=== PATIENT | female | born 1995 | race Caucasian/White ===

== ENCOUNTER 2018-09-12 21:48 | Emergency (ER) | payer OTHER ==
--- NOTE | 2018-09-12 21:58 | ED Physician Documentation ---
PD HPI FEMALE - Stated complaint Stated Complaint: FEM /6WKS PREG - History obtained from History obtained from: Patient - History of Present Illness Timing - onset: Today (She had brief cramping and slight spotting after urination today. She did not notice any blood in the toilet with the urine but when she wiped there was some blood tingeing on the toilet paper. She is 6 weeks with a positive test at home. She is concerned about this.) Timing - details: Abrupt onset. No: Still present Associated symptoms: Pelvic pain (some cramping), Vaginal bleeding (just spotting briefly). No: Fever, Abdominal pain, Back pain, Vaginal discharge, Dysuria, Urinary frequency Contributing factors: (5-6 weeks by dates) [employer] History: G (1), P (0) Similar symptoms before: Has not had sx before Recently seen: Not recently seen Review of Systems Constitutional: denies: Fever Nose: denies: Rhinorrhea / runny nose, Congestion Throat: denies: Sore throat Respiratory: denies: Cough GI: denies: Nausea, Vomiting, Diarrhea : denies: Dysuria, Frequency, Discharge Neurologic: denies: Generalized weakness, Near syncope PD PAST MEDICAL HISTORY - Past Medical History Cardiovascular: None Respiratory: None Neuro: None Endocrine/Autoimmune: None - Allergies Allergies/Adverse Reactions: Allergies Allergy/AdvReac Type Severity Reaction Status Date / Time Penicillins Allergy Unknown Verified 09/12/18 22:01 PD ED PE NORMAL - Vitals Vital signs reviewed: Yes - General General: Alert and oriented X 3, No acute distress, Well developed/nourished - Cardiac Cardiac: RRR, No murmur - Respiratory Respiratory: Clear bilaterally - Abdomen Abdomen: Normal bowel sounds, Soft, Non tender, Non distended, No organomegaly, Other (bedside U/S did not visualized the uterus well. Will get formal U/S. ) - Female Female : Deferred - Back Back: No CVA TTP - Derm Derm: Normal color, Warm and dry Results - Vitals Vitals: Vital Signs - 24 hr 09/12/18 09/13/18 21:59 00:21 Temperature 36.8 C 37.2 C Heart Rate 102 H 71 Respiratory 17 16 Rate Blood Pressure 145/84 H 125/76 O2 Saturation 98 100 Oxygen O2 Source Room air - Labs Labs: Laboratory Tests 09/12/18 09/12/18 09/12/18 22:05 22:33 22:33 HCG, Quant 3755.00 Urine Color YELLOW Urine Clarity CLEAR Urine pH 5.5 Ur Specific [place] <=1.005 Urine Protein NEGATIVE Urine Glucose (UA) NEGATIVE Urine Ketones NEGATIVE Urine Occult Blood SMALL H Urine Nitrite NEGATIVE Urine Bilirubin NEGATIVE Urine Urobilinogen 0.2 (NORMAL) Ur Leukocyte Esterase TRACE H Urine RBC 0-5 Urine WBC 0-3 Ur Squamous Epith Cells MOD Squamous H Urine Bacteria Rare Ur Microscopic Review INDICATED Urine Culture Comments NOT INDICATED Blood Type O NEGATIVE - Rads (name of study) OB U/S Radiology: Prelim report reviewed (Intrauterine visualized with gestational age about consistent with dates at 5-week 2 days.), See rad report Departure - Departure Disposition: 01 Home, Self Care Clinical Impression: Hemorrhage, , early Condition: Stable Record reviewed to determine appropriate education?: Yes Instructions: Bleeding Early Preg Comments: Your ultrasound shows an intrauterine appropriate for dates. As expected it is too early to really see a heartbeat. Your quantitative hCG is 3755. Follow-up with your primary care in 2 or 3 days to have the blood tests repeated again to ensure its rising appropriately. It should about double in that timeframe. Some spotting in early pregnancies is relatively common and typically benign. Return if fevers, consistent pain, worse or continued bleeding or other concerns. Discharge Date/Time: 09/13/18 00:26
[2018-09-12 22:11] LABS: BILIRUBIN,URINE NEGATIVE (NEGATIVE); GLUCOSE, URINE (UA) NEGATIVE (NEGATIVE); KETONES,URINE (UA) NEGATIVE (NEGATIVE); LEUKOCYTE ESTERASE, URINE TRACE (NEGATIVE); NITRITE,URINE NEGATIVE (NEGATIVE); OCCULT BLOOD,URINE SMALL (NEGATIVE); PH,URINE 5.5 PH (5.0-7.5); PROTEIN,URINE NEGATIVE (NEGATIVE); UROBILINOGEN,URINE 0.2 (NORMAL) E.U./dL (NORMAL)
[2018-09-12 22:12] LABS: CLARITY,URINE CLEAR (CLEAR)
[2018-09-12 22:26] LABS: BACTERIA,URINE Rare /HPF (None Seen); RBC,URINE 0-5 /HPF (0-5); SQUAMOUS EPITHELIAL CELL,UR MOD Squamous (<= Few)
[2018-09-13 00:22] VITALS: BP 125/76
--- NOTE | 2018-09-13 00:46 | Ultrasound Report ---
Reason: early preg; vag spotting Procedure Date: 09/12/2018 Accession Number: [id number] / [id number] Procedure: US - OB First Trimester CPT Code: FULL RESULT: EXAM: FIRST TRIMESTER OBSTETRIC ULTRASOUND (Less than 11 weeks) EXAM DATE: 09/12/2018 11:50 PM. CLINICAL HISTORY: Early . Vaginal spotting. LMP: 08/04/2018. COMPARISONS: None. TECHNIQUE: Transabdominal and transvaginal ultrasound examination with static image documentation. CLINICAL DATES: EGA 5 weeks 4 days with SHANIKA 05/11/2019 based on LMP. ASSESSMENT: Gestational Sac: Single intrauterine. Mean gestational sac diameter: 4.6 mm = 5 weeks 2 days. Embryo: Not seen. Cardiac activity: Not seen. Yolk sac: 1.9 mm. Amniotic fluid: Not accurately assessed at this gestational age. Early placenta: Not visible at this gestational age. Other: No perigestational fluid collection demonstrated. MATERNAL STRUCTURES: Uterus: Retroverted. Unremarkable. Cervix: Closed. Right Ovary/Adnexa: The ovary measures 3.1 x 1.8 x 1.8 cm, volume 5.2 cc. Unremarkable. Left Ovary/Adnexa: The ovary measures 3.4 x 2.1 x 2.2 cm, volume 8.2 cc. Possible corpus luteum measuring 1.8 x 1.8 x 1.5 cm. Free Fluid: Trace amount.. Other: Survey images of the kidneys are unremarkable.. IMPRESSION: 1. Single intrauterine gestational sac and yolk sac at EGA 5 weeks 2 days with SHANIKA 05/13/2019 based on mean sac diameter, which is concordant with clinical dates. 2. Assigned dating is SHANIKA 05/11/2019 based on LMP. 3. Embryo is not yet seen. Recommend sonographic follow-up. 4. Possible corpus luteum on the left ovary. RADIA
== END 2018-09-13 00:26 | disposition home or self-care (01) ==
LOC: EDBD → ED 21:48
DX: O26.851 Spotting complicating pregnancy, first trimester (principal); Z3A.01 Less than 8 weeks gestation of pregnancy
CPT/HCPCS: 36415; 76801; 76817; 81001; 81003; 84702; 86900; 86901; 87086; 99283; 99284